=== PATIENT | female | born 1945 | race Two or more races ===

== ENCOUNTER → 2019-01-02 | Outpatient (CLI) | payer OTHER | LOC: CIMAGING 08:32 | PROVIDERS: ATTEND Internal Medicine | DX: E03.9 Hypothyroidism, unspecified (principal); R06.09 Other forms of dyspnea; Z51.81 Encounter for therapeutic drug level monitoring; J40 Bronchitis, not specified as acute or chronic | CPT/HCPCS: 71046-PO ==